=== PATIENT | male | born 1965 | race Caucasian/White ===

== ENCOUNTER → 2016-08-20 | Outpatient (CLI) | payer OTHER | LOC: COL.RAD 12:41 | DX: R10.12 Left upper quadrant pain (principal); R35.0 Frequency of micturition; R14.0 Abdominal distension (gaseous); J84.10 Pulmonary fibrosis, unspecified; K76.0 Fatty (change of) liver, not elsewhere classified; K75.3 Granulomatous hepatitis, not elsewhere classified; N20.2 Calculus of kidney with calculus of ureter ==

== ENCOUNTER 2017-10-12 07:56 | Day surgery (SDC) | payer OTHER ==
[~2017-10-12] VITALS: Ht 175.3 cm; Wt 97.8 kg
[2017-10-12] MEDS ORDERED: CLARITIN 1010 MG/TAB PO (08:26)
[2017-10-12 08:27] VITALS: BP 146/93; PULSE 75; TEMP 98.8
[2017-10-12 09:55] VITALS: BP 131/94; PULSE 88; TEMP 98.5
[2017-10-12 10:10] VITALS: BP 127/82; PULSE 83
[2017-10-12 10:25] VITALS: BP 115/81; PULSE 66
[2017-10-12 10:40] VITALS: BP 120/93; PULSE 77
== END 2017-10-12 10:55 | disposition home or self-care (01) ==
LOC: SDCO 07:56
DX: Z12.11 Encounter for screening for malignant neoplasm of colon (principal); K52.9 Noninfective gastroenteritis and colitis, unspecified
CPT/HCPCS: OP; J2250; J2405; J3010; J7030